=== PATIENT | male | born 1965 | race Caucasian/White ===

== ENCOUNTER 2018-10-05 11:05 | Emergency (ER) | payer SELFPAY ==
[2018-10-05 11:31] LABS: HEMATOCRIT 30.3 % (37.9-51.0); HEMOGLOBIN 10.8 g/dL (13.5-17.0); MEAN CORPUSCULAR HEMOGLOBIN 35.2 pg (27.0-33.4); MEAN CORPUSCULAR HGB CONC 35.5 g/dL (32.0-36.0); MEAN CORPUSCULAR VOLUME 99 fl (80-97); PLATELET COUNT 215 10^3/uL (150-450); RED BLOOD COUNT 3.06 10^6/uL (4.35-5.55); RED CELL DISTRIBUTION WIDTH 19.2 % (11.5-14.0); WHITE BLOOD COUNT 17.4 10^3/uL (4.0-10.5)
[2018-10-05] MEDS ORDERED: LACTULOSE SYRUP 20 GM/30 ML UDCUP PO ONE (11:48)
[2018-10-05 11:51] LABS: ALANINE AMINOTRANSFERASE 38 U/L (21-72); ALBUMIN 3.2 g/dL (3.5-5.0); ALKALINE PHOSPHATASE 281 U/L (38-126); ANION GAP 17 (5-19); ASPARTATE AMINO TRANSFERASE 221 U/L (17-59); BLOOD UREA NITROGEN 41 mg/dL (7-20); CALCIUM 7.9 mg/dL (8.4-10.2); CARBON DIOXIDE 18 mmol/L (22-30); CHLORIDE 87 mmol/L (98-107); CREATINE KINASE 276 U/L (55-170); GLUCOSE 105 mg/dL (75-110); POTASSIUM 5.4 mmol/L (3.6-5.0); SODIUM 122.1 mmol/L (137-145); TOTAL PROTEIN 8.2 g/dL (6.3-8.2)
--- NOTE | 2018-10-05 12:01 | RADIOLOGY REPORT (SQ) ---
EXAM DESCRIPTION: CHEST SINGLE VIEW COMPLETED DATE/TIME: 10/05/2018 11:42 am REASON FOR STUDY: Jaundice, altered mental status COMPARISON: None. EXAM PARAMETERS: NUMBER OF VIEWS: One view. TECHNIQUE: Single frontal radiographic view of the chest acquired. RADIATION DOSE: NA LIMITATIONS: None. FINDINGS: LUNGS AND PLEURA: Elevation of the right hemidiaphragm. No opacities, masses or pneumoth orax. No pleural effusion. MEDIASTINUM AND HILAR STRUCTURES: No masses. Contour normal. HEART AND VASCULAR STRUCTURES: Heart normal in size. Normal vasculature. BONES: No acute findings. HARDWARE: None in the chest. OTHER: No other significant finding. IMPRESSION: 1. Elevation of the right hemidiaphragm. 2. No acute osseous findings. TECHNICAL DOCUMENTATION: JOB ID: [id number] [employer]- All Rights Reserved Reading location - IP/workstation name: [email or web address]
[2018-10-05 12:07] LABS: ABSOLUTE LYMPHOCYTES# (MANUAL) 0.5 10^3/uL (0.5-4.7); ABSOLUTE MONOCYTES # (MANUAL) 3.1 10^3/uL (0.1-1.4); ABSOLUTE NEUTROPHILS# (MANUAL) 13.7 10^3/uL (1.7-8.2); BAND NEUTROPHILS % (MANUAL) 3 % (3-5); BASOPHILS % (MANUAL) 0 % (0-2); EOSINOPHILS % (MANUAL) 0 % (0-6); LYMPHOCYTES % (MANUAL) 3 % (13-45); MONOCYTES % (MANUAL) 18 % (3-13); SEGMENTED NEUTROPHILS % (MAN) 76 % (42-78); TOTAL CELLS COUNTED 100; TOXIC GRANULATION 1+; TOXIC VACUOLATION PRESENT
[2018-10-05 12:08] LABS: ANISOCYTOSIS 1+; POIKILOCYTOSIS SLIGHT
[2018-10-05 12:10] LABS: INTERNATIONAL RATION (INR) 3.46; PLATELET COMMENT ADEQUATE; PROTHROMBIN TIME 36.4 SEC (11.4-15.4)
[2018-10-05 12:13] LABS: BILIRUBIN,TOTAL 29.7 mg/dL (0.2-1.3)
[2018-10-05 12:14] LABS: BILIRUBIN,DIRECT 27.1 mg/dL (0.0-0.4)
[2018-10-05 13:09] LABS: ALCOHOL 10 mg/dL (NONE DETECTED)
[2018-10-05 13:12] LABS: ACETAMINOPHEN < 10 ug/mL (10-30)
[2018-10-05] MEDS ORDERED: NORMAL SALINE 1000 ML 1,000 ML IV ONE (13:14)
--- NOTE | 2018-10-05 13:29 | EKG REPORT ---
SEVERITY:- ABNORMAL ECG - SINUS RHYTHM OLD ANTEROSEPTAL SC : Confirmed by: Manpreet Faria MD 05-Oct-2018 13:29:13
[2018-10-05] MEDS ORDERED: NORMAL SALINE 250 ML IV PRN (14:10)
[2018-10-05] MEDS ORDERED: PANTOPRAZOLE SODIUM 40 MG VIAL IV ONE (14:10)
[2018-10-05] MEDS ORDERED: NORMAL SALINE 500 ML with OCTREOTIDE ACETATE 500 MCG IV PRN ×2 (14:27)
[2018-10-05] MEDS ORDERED: OCTREOTIDE ACETATE INJ/PF 100 MCG/1 ML SDV IV ONE (14:27)
[2018-10-05] MEDS ORDERED: OCTREOTIDE ACETATE INJ/PF 100 MCG/1 ML SDV ONE (14:37)
--- NOTE | 2018-10-05 14:48 | ER Document Report ---
Entered by ZONIA ABREU SCRIBE 10/05/18 1122 Acting as scribe for:URIEL RAMIREZ MD ED General - General Chief Complaint: Altered Mental Status Stated Complaint: ALTERED MENTAL STATE Time Seen by Provider: 10/05/18 11:08 Primary Care Provider: BARBARA MAN [NO LACY MD] - Follow up as needed Mode of Arrival: Ambulatory Information source: Patient Notes: Patient is a 53 year old male presenting to the emergency department via EMS due to altered mental status and yellowing of the skin. EMS reports the patient presented to his PCP today due to yellowing of his skin where he appeared confused and had a minor fall resulting in no injuries. EMS reports the patient being disoriented to time further stating the patient stated it was 1998. Patient states he went into his doctor's office today because his friends noticed he appeared jaundiced approximately 2.5 weeks ago and encouraged him to go. He initially states he is currently asymptomatic stating "I feel pretty good", but later reports he has had decreased appetite for 1 week. He also reports chronic swelling of his right chest and chronic BLE edema. EMS reports administering 150 mL of normal saline. The patient's workup reveals hepatic failure and renal failure. He reports he drinks about 2 beers a day and is insistent that is all. His platelet count is normal at 215 and his MCV is only slightly elevated at 99. He denies any drug abuse. 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 He does not typically take Tylenol, but does take Motrin 800 mg once a daily for discomfort in his legs and feet. TRAVEL OUTSIDE OF THE [place] IN LAST 30 DAYS: No - Related Data Allergies/Adverse Reactions: No Known Allergies Allergy (Verified 10/05/18 11:37) Past Medical History - General Information source: Patient - Social History Smoking Status: Never Smoker Cigarette use (# per day): No Chew tobacco use (# tins/day): No Smoking Education Provided: No Frequency of alcohol use: Heavy - 2 beers a day Drug Abuse: None Family History: Reviewed & Not Pertinent Review of Systems - Review of Systems Constitutional: No symptoms reported Cardiovascular: No symptoms reported Respiratory: No symptoms reported Gastrointestinal: No symptoms reported Genitourinary: No symptoms reported Male Genitourinary: No symptoms reported Musculoskeletal: No symptoms reported Skin: See HPI, Change in color Hematologic/Lymphatic: No symptoms reported Neurological/Psychological: See HPI, Confusion -: Yes All other systems reviewed and negative Physical Exam - Vital signs Vitals: Resp BP Pulse Ox 23 H 122/53 L 96 10/05/18 11:08 10/05/18 11:08 10/05/18 11:08 - Notes Notes: GENERAL: Alert, interacts well, severely jaundiced. No acute distress. HEAD: Normocephalic, atraumatic. EYES: Pupils equal, round, and reactive to light. Extraocular movements intact. ENT: Oral mucosa dry, tongue midline. NECK: Full range of motion. Supple. Trachea midline. LUNGS: Clear to auscultation bilaterally, no wheezes, rales, or rhonchi. No respiratory distress.Gynecomastia of the right chest, reports it is chronic. HEART: Regular rate and rhythm. No murmurs, gallops, or rubs. ABDOMEN: Soft, non-tender. Non-distended. Bowel sounds present in all 4 quadrants. No guarding, rigidity, or rebound. EXTREMITIES: Moves all 4 extremities spontaneously. Chronic edema to the BLE, reports chronic, radial and dorsalis pedis pulses 2/4 bilaterally. No cyanosis. NEUROLOGICAL: Alert and oriented x3. Normal speech. PSYCH: Normal affect, normal mood. SKIN: Warm, dry, normal turgor. Severely jaundiced. Course - Re-evaluation Re-evalutation: 10/05/18 14:20 The patient just had a bowel movement of dark to black stool with some clots. His blood pressure dropped to 95/73 with a heart rate of 85. He is being crossmatched for 2 units packed red cells and 4 units of fresh frozen plasma. Updated status was discussed with Dr. Duckworth at [facility], arrangements are made for helicopter transport for an ED to ED transfer. 10/05/18 14:33 The patient has just in the past few minutes began vomiting dark blood and clots. The blood request was changed to emergency release, and octreotide bolus and infusion is started. 10/05/18 15:16 The patient's blood pressure has gone back up to 114/74 after 2 units of packed RBCs. He will receive an additional 2 units of packed RBCs to take on the flight to [facility]. The fresh frozen plasma has not finished thawing out so I do not know if it will be available to go. - Vital Signs Vital signs: Temp Pulse Resp BP Pulse Ox 97.4 F 90 24 H 113/95 H 94 10/05/18 11:36 10/05/18 11:17 10/05/18 14:28 10/05/18 14:31 10/05/18 14:33 - Laboratory Result Diagrams: 10/05/18 10:30 10/05/18 10:30 Laboratory results interpreted by me: 10/05/18 10/05/18 10/05/18 10:30 10:30 10:30 WBC 17.4 H RBC 3.06 L Hgb 10.8 L Hct 30.3 L MCV 99 H MCH 35.2 H RDW 19.2 H Lymphocytes % (Manual) 3 L Monocytes % (Manual) 18 H Abs Neuts (Manual) 13.7 H Abs Monocytes (Manual) 3.1 H PT 36.4 H Sodium 122.1 L Potassium 5.4 H Chloride 87 L Carbon Dioxide 18 L BUN 41 H Creatinine 4.67 H Est GFR ( Amer) 16 L Est GFR (Non-Af Amer) 13 L Calcium 7.9 L Magnesium 2.6 H Total Bilirubin 29.7 H Direct Bilirubin 27.1 H AST 221 H Alkaline Phosphatase 281 H Ammonia Creatine Kinase 276 H Albumin 3.2 L Acetaminophen Crossmatch 10/05/18 10/05/18 10/05/18 10:30 11:11 14:20 WBC RBC Hgb Hct MCV MCH RDW Lymphocytes % (Manual) Monocytes % (Manual) Abs Neuts (Manual) Abs Monocytes (Manual) PT Sodium Potassium Chloride Carbon Dioxide BUN Creatinine Est GFR ( Amer) Est GFR (Non-Af Amer) Calcium Magnesium Total Bilirubin Direct Bilirubin AST Alkaline Phosphatase Ammonia 54.6 H Creatine Kinase Albumin Acetaminophen < 10 L Crossmatch See Detail - Diagnostic Test Radiology reviewed: Image reviewed, Reports reviewed - Chest x-ray shows elevated right hemidiaphragm, no acute findings. - EKG Interpretation by Me EKG shows normal: Sinus rhythm, [place], Intervals, QRS Complexes, ST-T Waves Rate: Normal - 92 Rhythm: NSR Critical Care Note - Critical Care Note Total time excluding time spent on procedures (mins): 65 Discharge - Discharge Clinical Impression: Hepatic encephalopathy, Elevated INR, Hyperkalemia, Hyponatremia, Upper gastrointestinal bleed, Gynecomastia, male Liver failure Qualifiers: Liver failure chronicity: unspecified chronicity Hepatic coma status: without hepatic coma Qualified Code(s): K72.90 - Hepatic failure, unspecified without coma Renal failure Qualifiers: Renal failure chronicity: unspecified chronicity Qualified Code(s): N19 - Unspecified kidney failure Disposition: [place] Referrals: LOCALMD,NO [NO LOCAL MD] - Follow up as needed Scribe Attestation: 10/05/18 11:48 I personally performed the services described in the documentation, reviewed and edited the documentation which was dictated to the scribe in my presence, and it accurately records my words and actions. I personally performed the services described in the documentation, reviewed and edited the documentation which was dictated to the scribe in my presence, and it accurately records my words and actions.
[2018-10-05 15:17] LABS: AMORPHOUS SEDIMENT,URINE TRACE /HPF; APPEARANCE,URINE CLOUDY; BILIRUBIN,URINE MODERATE (NEGATIVE); COLOR,URINE AMBER; GLUCOSE, URINE 50 mg/dL (NEGATIVE); KETONES,URINE NEGATIVE (NEGATIVE); LEUKOCYTE ESTERASE,URINE NEGATIVE (NEGATIVE); NITRITE,URINE NEGATIVE (NEGATIVE); PROTEIN,URINE 30 mg/dL (NEGATIVE); URINE SPECIFIC GRAVITY 1.019
[2018-10-05 15:38] LABS: URINE AMPHETAMINES SCREEN NEGATIVE; URINE BARBITURATES SCREEN NEGATIVE; URINE BENZODIAZEPINES SCREEN NEGATIVE; URINE COCAINE SCREEN NEGATIVE; URINE MARIJUANA (THC) SCREEN NEGATIVE; URINE METHADONE SCREEN NEGATIVE; URINE PHENCYCLIDINE SCREEN NEGATIVE
[2018-10-05 16:17] VITALS: BP 114/79
[2018-10-06 07:44] LABS: HEPATITIS A AB IGM Negative (Negative); HEPATITIS B CORE AB IGM Negative (Negative); HEPATITS B SURFACE ANTIGEN Negative (Negative)
[2018-10-06 09:03] LABS: HEPATITIS C VIRUS ANTIBODY <0.1 s/co ratio (0.0-0.9)
== END 2018-10-05 15:45 | disposition short-term general hospital (02) ==
LOC: ER 11:05
DX: K72.90 Hepatic failure, unspecified without coma (principal); E87.5 Hyperkalemia; K92.2 Gastrointestinal hemorrhage, unspecified; N19 Unspecified kidney failure; R79.1 Abnormal coagulation profile; R60.0 Localized edema; Z79.1 Long term (current) use of non-steroidal anti-inflammatories (NSAID); R41.0 Disorientation, unspecified; N62 Hypertrophy of breast
CPT/HCPCS: 93005; 99291; 96361; 96375; 96365; 86900; 86901; 36415; 87040; 36430; 86850; 80307 ×3; 82140; 82550; 83735; 85025; 85610; 87077; 80053; 81001; 86920; 80074; 71045; 93010; P9016; J2354; S0164; J7030